=== PATIENT | female | born 1935 | race Caucasian/White ===

== ENCOUNTER 2025-01-01 06:22 | Emergency (ER) | payer MEDICARE, BC ==
[~2025-01-01] VITALS: Ht 152.4 cm; Wt 50.3 kg
[~2025-01-01 06:22] MED LIST: ATENOLOL50 MG PO; BAYER ASPIRIN C81 MG PO; MULTIPLE VITAMI1 CTB PO; ZOCOR5 MG PO
[2025-01-01] MEDS ORDERED: FAMOTIDINE 50 ML IV ONE (06:50)
[2025-01-01] MEDS ORDERED: Dexamethasone Sodium Phospha 20 MG/5 ML VIAL IV ONE (06:50)
[2025-01-01] MEDS ORDERED: diphenhydrAMINE hydrochloride 50 MG/ML VIAL IV ONE (06:50)
[2025-01-01] MEDS ORDERED: PEPCID20 MG PO (08:01)
[2025-01-01] MEDS ORDERED: PREDNISONE50 MG PO (08:01)
== END 2025-01-01 08:05 | disposition home or self-care (01) ==
LOC: ED 06:22
DX: L50.0 Allergic urticaria (principal); E78.00 Pure hypercholesterolemia, unspecified; I10 Essential (primary) hypertension; Z98.890 Other specified postprocedural states